=== PATIENT | female | born 1955 | race Caucasian/White ===

== ENCOUNTER 2019-03-04 08:46 | Emergency (ER) | payer BC ==
[2019-03-04 08:54] VITALS: BP 149/91
--- NOTE | 2019-03-04 09:18 | ER Document Report ---
HPI - HPI Time Seen by Provider: 03/04/19 09:05 Pain Level: 1 Context: Healthy, pleasant 63-year-old female with hypertension presents to the emergency department with chief complaint of a sinus infection since yesterday. Patient states that for the past week she has had cold-like symptoms to include cough, rhinorrhea, generalized body aches, and she feels weak. No fevers or chills. No headache, does complain of some right ear pressure. No neck stiffness. No a cute shortness of breath, wheezing, chest pain. Has chronic nausea but no vomiting. No urinary symptoms. - EENT EENT: REPORTS: Sore Throat - REPRODUCTIVE Reproductive: DENIES: : Past Medical History - Social History Smoking Status: Unknown if Ever Smoked Family History: Reviewed & Not Pertinent Patient has suicidal ideation: No Patient has homicidal ideation: No - Past Medical History Cardiac Medical History: Reports: Hx Hypercholesterolemia, Hx Hypertension Pulmonary Medical History: Reports: Hx COPD Renal/ Medical History: Reports: Hx Kidney Stones Psychiatric Medical History: Reports: Hx Anxiety Past Surgical History: Reports: Hx Abdominal Surgery - polyps removed, Hx Gynecologic Surgery, Hx Hysterectomy - Immunizations Hx Diphtheria, Pertussis, Tetanus Vaccination: Yes Vertical Provider Document - CONSTITUTIONAL Notes: PHYSICAL EXAMINATION: Reviewed vital signs and charting by RN GENERAL: Alert, interacts well. No acute distress. HEAD: Normocephalic, atraumatic. EYES: Pupils equal and round. Extraocular movements intact. ENT: Oral mucosa moist, tongue midline. No tonsillar hypertrophy or erythema, u vula midline NECK: Full range of motion. Trachea midline. LUNGS: Clear to auscultation bilaterally, no wheezes, rales, or rhonchi. No respiratory distress. HEART: Regular rate and rhythm. No murmur ABDOMEN: soft, non-tender. No distention. Bowel sounds present EXTREMITIES: Moves all 4 extremities spontaneously. No edema, No cyanosis. PSYCH: Normal affect, normal mood. SKIN: Warm, dry, normal turgor. No rashes or lesions noted. - INFECTION CONTROL TRAVEL OUTSIDE OF THE [place] IN LAST 30 DAYS: No Course - Re-evaluation Re-evalutation: 03/04/19 09:18 Presentation is most consistent with a viral upper respiratory infection. Patient is overall well appearance, vitals within normal limits, well-hydrated. Patient denies any headache, neck pain, and has no evidence of meningismus on examination. Lungs are clear bilaterally. No evidence of respiratory distress. Based on clinical exam and history, I do not suspect an acute pneumonia, meningitis, strep pharyngitis, or an acute encephalitis. No laboratory or imaging testing is indicated at this time. Will discharge patient with return precautions and followup recommendations. They are in agreement this plan have verbalized understanding return precautions. - Vital Signs Vital signs: Temp Pulse Resp BP Pulse Ox 97.9 F 88 16 149/91 H 98 03/04/19 09:04 03/04/19 08:53 03/04/19 09:04 03/04/19 08:53 03/04/19 09:04 Discharge - Discharge Clinical Impression: Viral upper respiratory infection, Sinus congestion Condition: Good Disposition: HOME, SELF-CARE Instructions: Upper Respiratory Illness ([facility]), Viral Syndrome ([facility]), Acetaminophen Additional Instructions: You have been seen in the emergency department for an upper respiratory infection. These are typically caused by viruses and do not respond to antibiotics. Please also continue to take [id number] Tylenol and Motrin for your generalized body aches, fever. Please stay well-hydrated and get plenty of rest. Please follow-up with your primary care provider in the next 24 to 48 hours. Please return to the emergency room should you have any other concerning symptoms. Referrals: VIRGIL GONZALES MD [Primary Care Provider] - Follow up as needed
== END 2019-03-04 09:20 | disposition home or self-care (01) ==
LOC: ER 08:46
DX: J06.9 Acute upper respiratory infection, unspecified (principal); B97.89 Other viral agents as the cause of diseases classified elsewhere; R09.81 Nasal congestion; I10 Essential (primary) hypertension; R05 Cough; J34.89 Other specified disorders of nose and nasal sinuses; J02.9 Acute pharyngitis, unspecified; J44.9 Chronic obstructive pulmonary disease, unspecified
CPT/HCPCS: 99283